=== PATIENT | male | born 1995 | race African-American/Black ===

== ENCOUNTER 2021-12-25 00:31 | Emergency (ER) | payer MEDICAID ==
[~2021-12-25] VITALS: Ht 182.9 cm; Wt 148.0 kg
[2021-12-25 00:48] VITALS: BP 107/59
== END 2021-12-25 03:05 | disposition left against medical advice (07) ==
LOC: ER 00:31
DX: Z53.21 Procedure and treatment not carried out due to patient leaving prior to being seen by health care provider (principal)

== ENCOUNTER 2024-10-20 01:21 | Emergency (ER) | payer MEDICAID ==
[~2024-10-20] VITALS: Ht 182.9 cm; Wt 210.0 kg
[2024-10-20 01:29] VITALS: BP 125/68; PULSE 117; RESP 24; TEMP 36.7; O2SAT 98
[2024-10-20] MEDS ORDERED: LIDOCAINE 5% PATCH TOP SCH (02:30)
[2024-10-20] MEDS ORDERED: KETOROLAC 15MG/ML VIAL IM ONE (02:30)
== END 2024-10-20 04:51 ==
LOC: ER 01:21
DX: M25.562 Pain in left knee (principal); V43.52XA Car driver injured in collision with other type car in traffic accident, initial encounter; Y93.89 Activity, other specified; Y92.89 Other specified places as the place of occurrence of the external cause; Y99.8 Other external cause status
CPT/HCPCS: 99283